=== PATIENT | female | born 1980 | race African-American/Black ===

== ENCOUNTER 2016-12-26 14:54 | Emergency (ER) | payer OTHER ==
[~2016-12-26] VITALS: Ht 149.9 cm; Wt 78.5 kg
[~2016-12-26 14:54] MED LIST: AUGMENTIN TAB875 MG PO; TOPAMAX25 MG PO; TOPAMAX50 MG PO; TOPIRAMATE25 MG ORAL; TRAMADOL HCL50 MG ORAL; VALIUM5 MG ORAL; VICODIN ES 7.51 EACH PO; ZOFRAN4 MG ORAL
[2016-12-26 16:08] VITALS: BP 120/78
--- NOTE | 2016-12-26 16:59 | Emergency Room Report ---
History of Present Illness General Chief Complaint: Lower Extremity Injury Source: Patient, Medical Record Present Illness HPI The patient is a 36-year-old female presenting with right knee pain 2 weeks prior after she states she bent down and felt a popping sensation. Pain began to reside but has now increased after walking a lot. Pain is now a 10 out of 10 dull ache and does not radiate. Worse with movement. She denies previous injury to the knee. She has not been seen by anyone for evaluation since the injury. She denies any other symptoms including nausea, vomiting, fever, chills Allergies: Coded Allergies: No Known Allergies (Unverified , 06/14/12) Patient History Past Medical History: see triage record Pertinent Family History: none Last Menstrual Period: 12/11/16 Now: No Reviewed Nursing Documentation: PMH: Agreed, PSxH: Agreed Nursing Documentation-PMH Past Medical History: No History, Except For Hx Cardiac Problems: No Hx Hypertension: No Hx Pacemaker: No Hx Asthma: No Hx COPD: No Hx Diabetes: No Hx Cancer: No Hx Gastrointestinal Problems: No Hx Dialysis: No Hx Cerebrovascular Accident: No Hx Seizures: No Review of Systems All Other Systems: negative except mentioned in HPI Physical Exam Vital Signs Date Time Temp Pulse Resp B/P Pulse Ox O2 Delivery O2 Flow Rate FiO2 12/26/16 15:00 98.2 75 14 135/83 98 Room Air Sp02 EP Interpretation: reviewed, normal General Appearance: no apparent distress, alert, GCS 15, non-toxic Head: normocephalic, atraumatic Eyes: bilateral eye PERRL, bilateral eye normal inspection Musculoskeletal: normal inspection, back normal, gait/station normal, normal range of motion, tender - R knee medial Neurologic: alert, oriented x3, responsive, motor strength/tone normal, sensory intact, speech normal Psychiatric: judgement/insight normal, memory normal, mood/affect normal, no suicidal/homicidal ideation Skin: normal color, no rash, warm/dry, well hydrated Lymphatic: no adenopathy Procedures Splinting Splinting : Consent: Verbal Location: R knee Pre-Made Type: GERA wrap Pre-Proc Neuro Vasc Exam: normal Post-Proc Neuro Vasc Exam: normal Patient Tolerated: Well Complications: None Medical Decision Making PA Attestation Dr. Mitchell is my supervising physician. Patient management was discussed with my supervising physician Diagnostic Impression: Primary Impression: Knee sprain Qualified Codes: S83.91XA - Sprain of unspecified site of right knee, initial encounter ER Course The patient is a 36-year-old female presenting with right knee pain Ddx considered include but not limited to sprain/strain, fracture, contusion Physical exam is consistent with a knee sprain. No obvious deformity. No ecchymosis X-rays unremarkable An Gera wrap is placed and the patient is provided crutches. She is given rice instructions and needs to followup with primary doctor. She was informed that she may need MRI if pain continues or worsens Other X-Ray Diagnostic Results Other X-Ray Diagnostic Results : X-Ray ordered: R knee # of Views/Limited Vs Complete: 3 View Indication: Pain EP Interpretation: Yes Interpretation: no dislocation, no soft tissue swelling, no fractures Impression: No acute disease Interpreting ER Provider: Dr. Stephen MARINO Scribe Text I am acting as scribe for my supervising physician. My supervising physician's interpretation of the R knee xrays are there are no fractures, dislocations or soft tissue swelling. Last Vital Signs Date Time Temp Pulse Resp B/P Pulse Ox O2 Delivery O2 Flow Rate FiO2 12/26/16 16:08 78 16 120/78 97 Room Air 12/26/16 15:00 98.2 Status: improved Disposition: HOME, SELF-CARE Condition: Improved Patient Instructions: Knee Sprain Additional Instructions: I discussed my findings with the patient. All questions and concerns have been answered. Treatment and medication compliance have been addressed. I advised the patient that they need to follow up with PMD in 3-5 days. Return to ED if pain remains or worsens, numbness or tingling occurs, new rash is noticed, fever is noticed, or if needed for any reason. Patient verbalized understanding of discharge instructions. ALANNAH BRYANT Dec 26, 2016 16:59
--- NOTE | 2016-12-27 08:22 | Diagnostic Imaging Report ---
Indications: Right knee pain Technique: 3 views of the right knee Findings: Comparison: None No fracture, dislocation, lytic destruction, periosteal reaction, joint space widening or effusion, surrounding soft tissue abnormality, or other acute changes demonstrated. No deformity, alignment abnormality, arthritic change, soft tissue calcification, or other chronic changes demonstrated. IMPRESSION: Negative right knee series.
== END 2016-12-26 16:11 | disposition home or self-care (01) ==
LOC: EMR 15:17
DX: S83.91XA Sprain of unspecified site of right knee, initial encounter (principal); X50.1XXA Overexertion from prolonged static or awkward postures, initial encounter; Y92.89 Other specified places as the place of occurrence of the external cause
CPT/HCPCS: 29530; 99283

== ENCOUNTER 2017-09-14 13:33 | Emergency (ER) | payer OTHER ==
[~2017-09-14] VITALS: Ht 149.9 cm; Wt 86.2 kg
[2017-09-14] MEDS ORDERED: NKM (13:52)
[2017-09-14] MEDS ORDERED: Lidocaine 2% Visc 15ml soln ORAL ONE (14:15)
[2017-09-14] MEDS ORDERED: Dicyclomine HCl 10mg/5ml oral soln ORAL ONE (14:15)
[2017-09-14] MEDS ORDERED: PEPCID20 MG ORAL (14:17)
[2017-09-14] MEDS ORDERED: DICYCLOMINE HCL20 M1 PO (14:17)
[2017-09-14 15:36] VITALS: BP 138/87
[2017-09-14 15:40] VITALS: BP 138/87
--- NOTE | 2017-09-14 15:57 | Emergency Room Report ---
History of Present Illness General Chief Complaint: Abdominal Pain Source: Patient Present Illness HPI Patient is a 37-year-old female who presents after increased abdominal pain and diarrhea for approximately 3 weeks. Patient reports having intermittent episodes of watery diarrhea. She denies any black or bloody stools. She denies recent alcohol use. She reports having worsened abdominal discomfort over the past 3 days. She reports having prior cholecystectomy. Occurred when she was a child. She denies any fever. She denies any vomiting currently. Allergies: Coded Allergies: No Known Allergies (Unverified , 06/14/12) Patient History Past Medical History: see triage record Last Menstrual Period: 08/18/17 Now: No Reviewed Nursing Documentation: PMH: Agreed; PSxH: Agreed Nursing Documentation-PMH Hx Cardiac Problems: No Hx Hypertension: No Hx Pacemaker: No Hx Asthma: No Hx COPD: No Hx Diabetes: No Hx Cancer: No Hx Gastrointestinal Problems: Yes - Cholecystectomy Hx Dialysis: No Hx Cerebrovascular Accident: No Hx Seizures: No Review of Systems All Other Systems: negative except mentioned in HPI Physical Exam Vital Signs Date Time Temp Pulse Resp B/P (MAP) Pulse Ox O2 Delivery O2 Flow Rate FiO2 09/14/17 13:48 98.1 78 16 128/83 97 Room Air 98.1 General Appearance: well appearing, no apparent distress, alert, GCS 15, obese Head: normocephalic, atraumatic ENT: hearing grossly normal, normal voice Neck: full range of motion, supple Respiratory: no respiratory distress, speaking full sentences Cardiovascular #1: normal inspection, no edema Gastrointestinal: normal inspection, normal bowel sounds, other - lap cholecystectomy without hernia Musculoskeletal: no calf tenderness Neurologic: normal inspection, alert, oriented x3, normal gait Psychiatric: mood/affect normal Skin: no rash Medical Decision Making Diagnostic Impression: Primary Impression: Abdominal pain ER Course Patient presented for abdominal pain. Differential diagnoses included ischemic bowel, appendicitis, perforated viscus, abdominal aortic aneurysm, inferior myocardial infarction, viral gastroenteritis. Patient has a benign exam and does not appear to require any further imaging or laboratory testing at this time. Patient appears to be well hydrated. She is advised dietary modification.The patient is advised to follow up with primary care doctor in 1-2 days. Patient is advised to return if any worsening condition or if any changes in status that are concerning. This report is dictated with [employer] concrete laborer software which may occasionally lead to discrepancies related to use of this software. Labs Test 09/14/17 13:55 Urine HCG, Qualitative Negative (NEGATIVE) Last Vital Signs Date Time Temp Pulse Resp B/P (MAP) Pulse Ox O2 Delivery O2 Flow Rate FiO2 09/14/17 15:40 97.7 70 16 138/87 99 Room Air 97.7 Status: improved Disposition: HOME, SELF-CARE Condition: Stable Scripts Famotidine (PEPCID) 20 Mg Tablet 20 MG ORAL BEDTIME, #7 TAB 0 Refills Prov: See Vargas 09/14/17 Dicyclomine Hcl (DICYCLOMINE HCL) 20 Mg Tablet 20 MG PO EVERY 6 HOURS for pain, #20 TAB Prov: See Vargas 09/14/17 Referrals: NON PHYSICIAN (PCP) Patient Instructions: Abdominal Pain, Adult Additional Instructions: Follow up with your primary care physician in 1-2 days for recheck. See Vargas Sep 14, 2017 15:57
== END 2017-09-14 15:40 | disposition home or self-care (01) ==
LOC: EMR 14:30
DX: R10.9 Unspecified abdominal pain (principal); R19.7 Diarrhea, unspecified; Z90.49 Acquired absence of other specified parts of digestive tract
CPT/HCPCS: 81025; 99284

== ENCOUNTER 2018-01-06 23:41 | Emergency (ER) | payer OTHER ==
[~2018-01-06] VITALS: Ht 149.9 cm; Wt 87.5 kg
[~2018-01-06 23:41] MED LIST changes: +DICYCLOMINE HCL20 M1 PO; +NKM; +PEPCID20 MG ORAL
[2018-01-07 00:15] VITALS: BP 126/70
[2018-01-07] MEDS ORDERED: Albuterol ud Inhalation HHN ONE (00:30)
[2018-01-07] MEDS ORDERED: Ipratropium 0.02% Inh Soln 2.5ml UD HHN ONE (00:30)
[2018-01-07] MEDS ORDERED: Dexamethasone 4mg/ml vial IM ONE (00:30)
[2018-01-07] MEDS ORDERED: Ketorolac 30mg Inj ONE (00:58)
[2018-01-07] MEDS ORDERED: AMOXICILLIN500 MG ORAL (01:00)
[2018-01-07] MEDS ORDERED: ALBUTEROL SULF8.5 GM INH (01:00)
[2018-01-07] MEDS ORDERED: ACETAMINOPHEN-1 EAC1 ORAL (01:00)
[2018-01-07] MEDS ORDERED: Ketorolac 30mg Inj IM ONE (01:00)
[2018-01-07 01:05] VITALS: BP 126/70
--- NOTE | 2018-01-07 02:09 | Emergency Room Report ---
History of Present Illness General Chief Complaint: Headache Source: Patient Present Illness HPI 37-year-old female presents ED complaining of sore throat, shortness of breath 1 day. States pain is throbbing, 9 out of 10, nonradiating. States she feels tightness in her chest and in her throat. Denies history of asthma. Denies smoking. Denies fevers or chills. Denies cough. States that she returned from [place] few days ago and several of her friends have similar symptoms. No other aggravating relieving factors. Denies any other associated symptoms Allergies: Coded Allergies: No Known Allergies (Unverified , 06/14/12) Patient History Past Medical History: none Past Surgical History: iwona Pertinent Family History: none Social History: Denies: smoking, alcohol use, drug use Last Menstrual Period: December Now: No Immunizations: UTD Reviewed Nursing Documentation: PMH: Agreed; PSxH: Agreed Nursing Documentation-PMH Hx Cardiac Problems: No Hx Hypertension: No Hx Pacemaker: No Hx Asthma: No Hx COPD: No Hx Diabetes: No Hx Cancer: No Hx Gastrointestinal Problems: Yes - Cholecystectomy Hx Dialysis: No Hx Cerebrovascular Accident: No Hx Seizures: No Review of Systems All Other Systems: negative except mentioned in HPI Physical Exam Vital Signs Date Time Temp Pulse Resp B/P (MAP) Pulse Ox O2 Delivery O2 Flow Rate FiO2 01/07/18 00:03 99.9 109 18 120/72 96 Room Air 99.9 01/07/18 00:45 21 Sp02 EP Interpretation: reviewed, normal General Appearance: alert, GCS 15, non-toxic, mild distress Head: normocephalic Eyes: bilateral eye normal inspection, bilateral eye PERRL ENT: TMs + canals normal, uvula midline, pharyngeal erythema, tonsillar exudate Neck: full range of motion, supple/symm/no masses Respiratory: decreased breath sounds Cardiovascular #1: regular rate, rhythm, no edema Gastrointestinal: normal inspection Rectal: deferred Genitourinary: no CVA tenderness Musculoskeletal: normal inspection Neurologic: alert, oriented x3, responsive, motor strength/tone normal, sensory intact, speech normal Psychiatric: normal inspection Skin: normal inspection Lymphatic: normal inspection Medical Decision Making Diagnostic Impression: Primary Impression: Pharyngitis Qualified Codes: J02.9 - Acute pharyngitis, unspecified ER Course Hospital Course 37-year-old female presents to ED complaining of sore throat, SOB Differential diagnoses include: URI, pharyngitis, otitis media Clinical course Patient placed on stretcher. After initial history, physical exam reveals a female in no acute distress. Bilateral TM unremarkable. There is pharyngeal erythema w/ tonsillar exudates. No lymphadenopathy. Decreased breath sounds. Patient given Decadron, pain meds, breathing treatment here in ED On reassessment symptoms improved. Discussed findings with patient. Safe for discharge with close patient follow-up Diagnosis - pharyngitis Stable and discharged home with prescriptions for Tylenol #3, albuterol, amoxicillin. Instructed to followup with PMD. return to ED if symptoms recur or worsen Last Vital Signs Date Time Temp Pulse Resp B/P (MAP) Pulse Ox O2 Delivery O2 Flow Rate FiO2 01/07/18 01:01 99.9 01/07/18 00:47 98 20 97 Room Air 21 01/07/18 00:03 120/72 Status: improved Disposition: HOME, SELF-CARE Condition: Stable Scripts Albuterol Sulfate* (ALBUTEROL SULFATE MDI*) 8.5 Gm Hfa.aer.ad 2 PUFF INH Q6H, #1 EA 0 Refills Prov: Amadou Merritt MD 01/07/18 Amoxicillin* (AMOXIL*) 500 Mg Capsule 500 MG ORAL THREE TIMES A DAY, #21 CAP Prov: Amadou Merritt MD 01/07/18 Acetaminophen With Codeine (T#3) (TYLENOL #3 TAB*) Y Tab 1 TAB ORAL Q8H PRN for For Pain, #20 TAB Prov: Amadou Merritt MD 01/07/18 Departure Forms: Return to Work Return to Work Date: Jan 09, 2018 Work Restrictions: None Patient Instructions: Pharyngitis, [id number] Amadou Merritt MD Jan 07, 2018 02:09
== END 2018-01-07 01:05 | disposition home or self-care (01) ==
LOC: EMR 01-07 00:41
DX: J02.9 Acute pharyngitis, unspecified (principal)
CPT/HCPCS: 94640; 94664; 96372; 99284; J1100; J1885

== ENCOUNTER 2018-12-16 21:12 | Emergency (ER) | payer OTHER ==
[~2018-12-16] VITALS: Ht 149.9 cm; Wt 88.5 kg
[~2018-12-16 21:12] MED LIST changes: +ACETAMINOPHEN-1 EAC1 ORAL; +ALBUTEROL SULF8.5 GM INH; +AMOXICILLIN500 MG ORAL
[2018-12-16 21:15] VITALS: BP 147/92
--- NOTE | 2018-12-16 21:15 | NUR ---
ED Nurse Note: PAtient walked into ED c/o lwoer abdominal pain that has been an ongoing issue for the past 5 days, patient rates her pain a 10/10 sharp lke pain, states that she is peeing more frequently as well. patient states that she does have a history of gallstones however had her gallbladder removed. patient is alert and oriented x4, ambulatory with a steady gait, VSS
--- NOTE | 2018-12-16 21:51 | Emergency Room Report ---
History of Present Illness General Chief Complaint: Abdominal Pain Source: Patient Present Illness [facility] The patient presents with 1 week of left-sided abdominal pain. She has had episodes of vomiting 2 days ago but this is better at this time. The pain is constant and rated 5/10. In addition she has a headache and feels weak. She has had loose stools without any blood. She does not believe she is at this time. She denies dysuria or hematuria. In the past the patient's had kidney stones. It feels similar to that or when she had that or gallbladder disease. The patient also has a history of migraines. She states that morphine makes her hallucinate. The headache feels similar to 1 of her migraines. Light bothers her somewhat. She denies fevers or chills. There is no weakness. She is not on any blood thinners. She does not take control pills. No chest pain, palpitations, shortness of breath, depression. Allergies: Coded Allergies: No Known Allergies (Unverified , 06/14/12) Patient History Past Medical History: see triage record Past Surgical History: iwona Social History: Denies: smoking Social History Narrative Brought by family member Last Menstrual Period: 10/15/2018 Now: No - unk : 4 Para: 2 Reviewed Nursing Documentation: PMH: Agreed; PSxH: Agreed Nursing Documentation-PMH Hx Cardiac Problems: No Hx Hypertension: No Hx Pacemaker: No Hx Asthma: No Hx COPD: No Hx Diabetes: No Hx Cancer: No Hx Gastrointestinal Problems: Yes - Cholecystectomy Hx Dialysis: No Hx Cerebrovascular Accident: No Hx Seizures: No Review of Systems All Other Systems: negative except mentioned in HPI Physical Exam Vital Signs Date Time Temp Pulse Resp B/P (MAP) Pulse Ox O2 Delivery O2 Flow Rate FiO2 12/16/18 21:15 98.2 63 18 147/92 (110) 96 Room Air Sp02 EP Interpretation: reviewed, normal General Appearance: well appearing, no apparent distress, GCS 15 Head: normocephalic, atraumatic Eyes: bilateral eye normal inspection, bilateral eye PERRL, bilateral eye EOMI ENT: moist mucus membranes Neck: supple Respiratory: lungs clear, normal breath sounds Cardiovascular #1: regular rate, rhythm Cardiovascular #2: 2+ radial (R) Gastrointestinal: normal inspection, normal bowel sounds, no mass, non- distended, no guarding, no rebound, tenderness - Left abdomen and flank, overweight Genitourinary: no CVA tenderness Musculoskeletal: back normal, normal range of motion Neurologic: alert, oriented x3, is architect III-XII nml as tested, motor strength/tone normal, DTRs symmetric, sensory intact, cerebellar normal, normal gait, speech normal Psychiatric: depressed affect Skin: no rash Medical Decision Making Diagnostic Impression: Primary Impression: Abdominal pain Qualified Codes: R10.9 - Unspecified abdominal pain Additional Impression: Migraine Qualified Codes: G43.909 - Migraine, unspecified, not intractable, without status migrainosus ER Course Patient presents with 1 week of abdominal pain that is mainly left flank. Differential includes pyelonephritis, renal stone, diverticulitis amongst others. The patient will be evaluated with CT of the abdomen and labs. The patient will receive IV hydration, Reglan, Benadryl, Pepcid and Toradol. Labs with normal WBC. CMP unremarkable. Urinalysis clear Delay for CT. CT without surgical pathology. Patient improved with treatment. Discussed need for outpatient reevaluation with her doctor. Also advised to return if she worsens. Patient stable for outpatient observation and treatment. Laboratory Tests Test 12/16/18 21:26 12/16/18 22:15 Urine Color Pale yellow Urine Appearance Clear Urine pH 7 (4.5-8.0) Urine Specific [place] 1.010 (1.005-1.035) Urine Protein Negative (NEGATIVE) Urine Glucose (UA) Negative (NEGATIVE) Urine Ketones Negative (NEGATIVE) Urine Blood Negative (NEGATIVE) Urine Nitrite Negative (NEGATIVE) Urine Bilirubin Negative (NEGATIVE) Urine Urobilinogen Normal MG/DL (0.0-1.0) Urine Leukocyte Esterase Negative (NEGATIVE) Urine HCG, Qualitative Negative (NEGATIVE) White Blood Count 5.0 K/UL (4.8-10.8) Red Blood Count 4.91 M/UL (4.20-5.40) Hemoglobin 13.0 G/DL (12.0-16.0) Hematocrit 41.1 % (37.0-47.0) Mean Corpuscular Volume 84 FL (80-99) Mean Corpuscular Hemoglobin 26.4 PG (27.0-31.0) L Mean Corpuscular Hemoglobin Concent 31.5 G/DL (32.0-36.0) L Red Cell Distribution Width 12.2 % (11.6-14.8) Platelet Count 206 K/UL (150-450) Mean Platelet Volume 9.7 FL (6.5-10.1) Neutrophils (%) (Auto) 53.8 % (45.0-75.0) Lymphocytes (%) (Auto) 35.3 % (20.0-45.0) Monocytes (%) (Auto) 6.8 % (1.0-10.0) Eosinophils (%) (Auto) 1.8 % (0.0-3.0) Basophils (%) (Auto) 2.4 % (0.0-2.0) H Prothrombin Time 10.7 SEC (9.30-11.50) Prothrombin Time INR 1.0 (0.9-1.1) PTT 30 SEC (23-33) Sodium Level 139 MMOL/L (136-145) Potassium Level 4.6 MMOL/L (3.5-5.1) Chloride Level 104 MMOL/L (98-107) Carbon Dioxide Level 30 MMOL/L (21-32) Anion Gap 5 mmol/L (5-15) Blood Urea Nitrogen 10 mg/dL (7-18) Creatinine 0.7 MG/DL (0.55-1.30) Estimate Glomerular Filtration Rate > 60 mL/min (>60) Glucose Level 93 MG/DL (74-106) Calcium Level 9.0 MG/DL (8.5-10.1) Total Bilirubin 0.3 MG/DL (0.2-1.0) Aspartate Amino Transferase (AST) 42 U/L (15-37) H Alanine Aminotransferase (ALT) 33 U/L (12-78) Alkaline Phosphatase 116 U/L (46-116) Total Protein 7.5 G/DL (6.4-8.2) Albumin 3.9 G/DL (3.4-5.0) Globulin 3.6 g/dL Albumin/Globulin Ratio 1.1 (1.0-2.7) Lipase 109 U/L (73-393) CT/MRI/US Diagnostic Results CT/MRI/US Diagnostic Results : Imaging Test Ordered: CT abd pelvis Impression Elongated right ovarian 4.5 cm cystic lesion. Question hydro-salpinx versus other ovarian related cystic lesion. Few colonic diverticula without diverticulitis. Left renal 7.5 mm indeterminant hypodense lesion Last Vital Signs Date Time Temp Pulse Resp B/P (MAP) Pulse Ox O2 Delivery O2 Flow Rate FiO2 12/17/18 02:22 98.2 72 18 152/80 96 Room Air Status: improved Disposition: HOME, SELF-CARE Condition: Improved Scripts Tramadol Hcl* (ULTRAM*) 50 Mg Tablet 50 MG ORAL Q6H PRN for For Pain, #8 TAB 0 Refills Prov: Vinicio Pak MD 12/17/18 Ondansetron Odt* (ZOFRAN ODT*) 4 Mg Tab.rapdis 4 MG BC EVERY 8 HOURS, #6 TAB 0 Refills Prov: Vinicio Pak MD 12/17/18 Vinicio Pak MD Dec 16, 2018 21:51
[2018-12-16] MEDS ORDERED: Metoclopramide 10mg/2ml Inj IVP ONE (22:00)
[2018-12-16] MEDS ORDERED: Ketorolac 30mg Inj IV ONE (22:00)
[2018-12-16] MEDS ORDERED: DiphenhydrAMINE 50mg/ml Inj IVP ONE (22:00)
[2018-12-16] MEDS ORDERED: Isovue-300 100ml vial INJ PRN (22:00)
[2018-12-16 22:36] LABS: APPEARANCE,URINE CLEAR; BILIRUBIN, URINE NEGATIVE (NEGATIVE); COLOR,URINE PALE YELLOW; GLUCOSE, URINE (UA) NEGATIVE (NEGATIVE); KETONES,URINE NEGATIVE (NEGATIVE); LEUKOCYTE ESTERASE ,URINE NEGATIVE (NEGATIVE); NITRITE,URINE NEGATIVE (NEGATIVE); PH,URINE 7 (4.5-8.0); PROTEIN,URINE NEGATIVE (NEGATIVE); UROBILINOGEN,URINE NORMAL MG/DL (0.0-1.0)
[2018-12-16 22:41] LABS: BASOPHILS % (AUTO) 2.4 % (0.0-2.0); EOSINOPHILS % (AUTO) 1.8 % (0.0-3.0); HEMATOCRIT 41.1 % (37.0-47.0); LYMPHOCYTES % (AUTO) 35.3 % (20.0-45.0); MEAN CORPUSCULAR VOLUME 84 FL (80-99); MONOCYTES % (AUTO) 6.8 % (1.0-10.0); NEUTROPHILS % (AUTO) 53.8 % (45.0-75.0); PLATELET COUNT 206 K/UL (150-450); RED BLOOD COUNT 4.91 M/UL (4.20-5.40); RED CELL DISTRIBUTION WIDTH 12.2 % (11.6-14.8)
[2018-12-16 22:52] LABS: ANION GAP 5 mmol/L (5-15); BLOOD UREA NITROGEN 10 mg/dL (7-18); CARBON DIOXIDE 30 MMOL/L (21-32); CHLORIDE 104 MMOL/L (98-107); CREATININE 0.7 MG/DL (0.55-1.30); POTASSIUM 4.6 MMOL/L (3.5-5.1); SODIUM 139 MMOL/L (136-145)
[2018-12-16 22:56] LABS: ALANINE AMINOTRANSFERASE 33 U/L (12-78); ALBUMIN 3.9 G/DL (3.4-5.0); ALBUMIN/GLOBULIN RATIO 1.1 (1.0-2.7); ALKALINE PHOSPHATASE 116 U/L (46-116); ASPARTATE AMINO TRANSFERASE 42 U/L (15-37); BILIRUBIN,TOTAL 0.3 MG/DL (0.2-1.0)
--- NOTE | 2018-12-16 23:30 | NUR ---
ED Nurse Note: PAtient went down for CT
--- NOTE | 2018-12-16 23:50 | NUR ---
ED Nurse Note: Patint has come back from CT
--- NOTE | 2018-12-17 01:15 | NUR ---
ED Nurse Note: PAtient complains of no pain at this time
--- NOTE | 2018-12-17 01:57 | Diagnostic Imaging Report ---
EXAM: CT Abdomen and Pelvis With Intravenous Contrast CLINICAL HISTORY: ABD PAIN TECHNIQUE: Axial computed tomography images of the abdomen and pelvis with intravenous contrast. CTDI is 19.66 mGy and DLP is 1013 mGy-cm. One or more of the following dose reduction techniques were used: automated exposure control, adjustment of the mA and/or kV according to patient size, use of iterative reconstruction technique. Oral contrast was administered. Coronal and sagittal reformatted images were created and reviewed. COMPARISON: Pelvic ultrasound dated 06/01/15 FINDINGS: Lung bases: Unremarkable. No mass. No consolidation. ABDOMEN: Liver: Unremarkable. No mass. Gallbladder and bile ducts: Cholecystectomy. No ductal dilation. Pancreas: Unremarkable. No mass. No ductal dilation. Spleen: Unremarkable. No splenomegaly. Adrenals: Unremarkable. No mass. Kidneys and ureters: Left renal 7.1 mm indeterminate hypodense lesion. No hydronephrosis. Stomach and bowel: Few colonic diverticula without diverticulitis. No obstruction. PELVIS: Appendix: No findings to suggest acute appendicitis. Bladder: Unremarkable. No mass. Reproductive: Elongated right ovarian 4.5 cm cystic lesion. Question hydrosalpinx versus other ovarian related cystic lesion. ABDOMEN and PELVIS: Intraperitoneal space: Unremarkable. No free air. No significant fluid collection. Bones/joints: No acute fracture. No dislocation. Soft tissues: Unremarkable. Vasculature: Unremarkable. No abdominal aortic aneurysm. Lymph nodes: Unremarkable. No enlarged lymph nodes. IMPRESSION: 1. Elongated right ovarian 4.5 cm cystic lesion. Question hydrosalpinx versus other ovarian related cystic lesion. 2. Few colonic diverticula without diverticulitis. 3. Left renal 7.1 mm indeterminate hypodense lesion.
[2018-12-17] MEDS ORDERED: TRAMADOL HCL50 MG ORAL (02:13)
[2018-12-17] MEDS ORDERED: ONDANSETRON ODT4 MG BC (02:13)
--- NOTE | 2018-12-17 02:21 | NUR ---
ER DISCHARGE NOTE: Patient is cleared to be discharged per ERMD, pt is aox4, on room air, with stable vital signs. pt was given dc and prescription instructions, pt was able to verbalize understanding, pt id band and iv site removed without complications. pt is able to ambulate with steady gait. pt took all belongings.
[2018-12-17 02:22] VITALS: BP 152/80
== END 2018-12-17 02:23 | disposition home or self-care (01) ==
LOC: EMR 21:53
DX: R10.9 Unspecified abdominal pain (principal); G43.909 Migraine, unspecified, not intractable, without status migrainosus; Z87.442 Personal history of urinary calculi; Z90.49 Acquired absence of other specified parts of digestive tract; K57.90 Diverticulosis of intestine, part unspecified, without perforation or abscess without bleeding
CPT/HCPCS: 36415; 74177; 80053; 81003; 81025; 83690; 85025; 85610; 85730; 96361; 96374; 96375; 99284; J1200; J1885; J2765; Q9967; S0028

== ENCOUNTER 2019-09-19 08:24 | Emergency (ER) | payer OTHER ==
[~2019-09-19] VITALS: Ht 149.9 cm; Wt 93.4 kg
[~2019-09-19 08:24] MED LIST changes: +ONDANSETRON ODT4 MG BC
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
[2019-09-19 08:42] VITALS: BP 132/88
--- NOTE | 2019-09-19 08:50 | NUR ---
ED Nurse Note: ERMD at bedside
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
--- NOTE | 2019-09-19 09:10 | NUR ---
ED Nurse Note: all medications administered, pt tolerated well. no ss of distress noted.
--- NOTE | 2019-09-19 09:11 | NUR ---
ED Nurse Note: ermd at bedside
--- NOTE | 2019-09-19 09:32 | NUR ---
ED Nurse Note: xray at bedside
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
--- NOTE | 2019-09-19 10:20 | NUR ---
ED Nurse Note: ERMD at bedside
[2019-09-19 10:30] VITALS: BP 129/85
[2019-09-19] MEDS ORDERED: IBUPROFEN600 M1 ORAL (10:30)
[2019-09-19] MEDS ORDERED: TRAMADOL HCL50 MG ORAL (10:30)
[2019-09-19 10:49] VITALS: BP 129/85
--- NOTE | 2019-09-19 10:49 | NUR ---
ER DISCHARGE NOTE: Patient is cleared to be discharged per ERMD, pt is aox4, on room air, with stable vital signs. pt was given dc and prescription instructions, pt was able to verbalize understanding, pt id band removed. pt is able to ambulate with cane with steady gait. pt took all belongings.
== END 2019-09-19 10:49 | disposition home or self-care (01) ==
LOC: EMR 08:50
DX: S60.212A Contusion of left wrist, initial encounter (principal); S73.011A Posterior subluxation of right hip, initial encounter; Z90.49 Acquired absence of other specified parts of digestive tract; V43.52XA Car driver injured in collision with other type car in traffic accident, initial encounter; Y92.410 Unspecified street and highway as the place of occurrence of the external cause
CPT/HCPCS: 73110; 73501; Z7502; 99284

== ENCOUNTER 2019-12-25 20:29 | Emergency (ER) | payer MEDICAID, OTHER ==
[~2019-12-25] VITALS: Ht 149.9 cm; Wt 93.9 kg
[~2019-12-25 20:29] MED LIST changes: +IBUPROFEN600 M1 ORAL
--- NOTE | 2019-12-25 20:43 | NUR ---
ED Nurse Note: Walk-in patient with complaints of abdominal pain since this morning, in the hypogastrium, left and right iliac areas. Patietn states that sitting in warm water makes it better. Presents guarding the area. Patient states has never had pain like this before.
[2019-12-25 20:47] VITALS: BP 156/91
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
[2019-12-25] MEDS: Morphine Sulfate 2mg/ml Inj(IV/IM USE ONLY) IVP ONE ×2 (21:15→21:32)
[2019-12-25] MEDS ORDERED: Ketorolac 30mg Inj IV ONE (21:15)
[2019-12-25] MEDS ORDERED: Metoclopramide 10mg/2ml Inj IVP ONE (21:15)
[2019-12-25] MEDS ORDERED: DiphenhydrAMINE 50mg/ml Inj IVP ONE (21:15)
[2019-12-25 21:22] LABS: APPEARANCE,URINE CLEAR; BILIRUBIN, URINE NEGATIVE (NEGATIVE); GLUCOSE, URINE (UA) NEGATIVE (NEGATIVE); KETONES,URINE NEGATIVE (NEGATIVE); LEUKOCYTE ESTERASE ,URINE 1+ (NEGATIVE); NITRITE,URINE NEGATIVE (NEGATIVE); PH,URINE 6 (4.5-8.0); PROTEIN,URINE NEGATIVE (NEGATIVE); UROBILINOGEN,URINE 1 MG/DL (0.0-1.0)
[2019-12-25 21:25] LABS: COLOR,URINE YELLOW
[2019-12-25 21:27] LABS: BASOPHILS % (AUTO) 1.5 % (0.0-2.0); EOSINOPHILS % (AUTO) 1.4 % (0.0-3.0); HEMATOCRIT 41.4 % (37.0-47.0); LYMPHOCYTES % (AUTO) 25.8 % (20.0-45.0); MEAN CORPUSCULAR VOLUME 85 FL (80-99); MONOCYTES % (AUTO) 5.4 % (1.0-10.0); NEUTROPHILS % (AUTO) 65.9 % (45.0-75.0); PLATELET COUNT 223 K/UL (150-450); RED BLOOD COUNT 4.89 M/UL (4.20-5.40); RED CELL DISTRIBUTION WIDTH 14.3 % (11.6-14.8); WHITE BLOOD COUNT 7.5 K/UL (4.8-10.8)
[2019-12-25 21:34] LABS: ANION GAP 9 mmol/L (5-15); BLOOD UREA NITROGEN 9 mg/dL (7-18); CALCIUM 8.7 MG/DL (8.5-10.1); CARBON DIOXIDE 30 MMOL/L (21-32); CHLORIDE 102 MMOL/L (98-107); POTASSIUM 3.9 MMOL/L (3.5-5.1); SODIUM 141 MMOL/L (136-145)
[2019-12-25 21:38] LABS: INR 1.2 (0.9-1.1)
[2019-12-25 21:39] LABS: ALANINE AMINOTRANSFERASE 37 U/L (12-78); ALBUMIN 4.1 G/DL (3.4-5.0); ALBUMIN/GLOBULIN RATIO 1.1 (1.0-2.7); ALKALINE PHOSPHATASE 110 U/L (46-116); ASPARTATE AMINO TRANSFERASE 24 U/L (15-37); BILIRUBIN,TOTAL 0.2 MG/DL (0.2-1.0)
[2019-12-25 21:42] VITALS: BP 143/104
--- NOTE | 2019-12-25 21:45 | NUR ---
ED Nurse Note: Patient resting comfortably and reports having no pain at this time. Will continue to monitor for operating room technologist arrrival.
--- NOTE | 2019-12-25 22:20 | NUR ---
ED Nurse Note: seal delivery vehicle team technician at bedside.
[2019-12-25] MEDS ORDERED: TYLENOL325 MG ORAL (22:41)
[2019-12-25] MEDS ORDERED: IBUPROFEN600 M1 ORAL (22:41)
[2019-12-25] MEDS ORDERED: ONDANSETRON ODT4 MG BC (22:41)
[2019-12-25 23:49] VITALS: BP 138/75
--- NOTE | 2019-12-25 23:53 | NUR ---
ER DISCHARGE NOTE: Patient is cleared to be discharged per ERMD, pt is aox4, on room air, with stable vital signs. pt was given dc and prescription instructions, pt was able to verbalize understanding, pt id band and iv site removed intact without complications. pt is able to ambulate with steady gait. pt took all belongings. pt stable upon discharge.
--- NOTE | 2019-12-26 | Diagnostic Imaging Report ---
EXAM: US Pelvis Transabdominal CLINICAL HISTORY: ABD PAIN TECHNIQUE: Real-time transabdominal pelvic ultrasound with image documentation. COMPARISON: No relevant prior studies available. FINDINGS: Uterus/cervix: echogenic T-shaped IUD is in satisfactory position. Suspect 3.3 cm posterior right uterine fibroid. Endometrial echo complex measures about 3 mm in maximal thickness. Uterus measures about 6.8 x 7. 7 x 4.9 cm. Nabothian cyst. Right ovary: Right ovary measures about 4.3 x 1.7 x 1.5 cm. Normal blood flow. Left ovary: Left ovary measures about 4.5 x 3 x 3.2 cm. Left ovarian cysts, measuring up to 2.6 cm. Normal blood flow. Free fluid: Trace of free pelvic fluid. Bladder: Unremarkable as visualized. Wall is normal thickness for degree of distention. IMPRESSION: 1. T-shaped IUD is in satisfactory position. 2. Suspect 3.3 cm posterior right uterine fibroid. 3. Left ovarian cysts, measuring up to 2.6 cm
== END 2019-12-25 23:54 | disposition home or self-care (01) ==
LOC: EMR 20:45
DX: R10.9 Unspecified abdominal pain (principal); N83.202 Unspecified ovarian cyst, left side; D25.9 Leiomyoma of uterus, unspecified; Z97.5 Presence of (intrauterine) contraceptive device; Z88.6 Allergy status to analgesic agent; Z90.49 Acquired absence of other specified parts of digestive tract; R55 Syncope and collapse
CPT/HCPCS: 36415; 76830; 76856; 80053; 81003; 81025; 83690; 85025; 85610; 85730; 96361; 96374; 96375; J1200; J1885; J2765; J7030; Z7502; 99284